=== PATIENT | female | born 1970 | race Caucasian/White ===

== ENCOUNTER 2018-08-17 20:07 | Inpatient (IN) | payer OTHER ==
[2018-08-17] MEDS ORDERED: IPRATROPIUM/ALBUTEROL 3 ML DEYVIAL ONE (20:27)
[2018-08-17] MEDS ORDERED: IPRATROPIUM/ALBUTEROL 3 ML DEYVIAL IH ONE (20:28)
[2018-08-17] MEDS ORDERED: NS 1,000 ML IV ONE ×2 (20:37→21:52)
[2018-08-17] MEDS ORDERED: ALBUTEROL 3 ML DEYVIAL IH ONE (20:40)
[2018-08-17] MEDS ORDERED: methylPREDNISolone SOD SUCC 125 MG/2 ML VIAL IVP ONE (20:40)
--- NOTE | 2018-08-17 20:40 | EDPHY ---
H & P Stated Complaint: dx with FluA, tonight dizziness SOB, productive cough, thick secreations,TUTTLE Source: Patient Exam Limitations: No limitations - Personal History Current Tetanus/Diphtheria Vaccine: Yes Current Tetanus Diphtheria and Acellular Pertussis (TDAP): Yes - Medical/Surgical History Hx Asthma: No Hx Chronic Respiratory Disease: No Hx Diabetes: No Hx Cardiac Disease: No Hx Renal Disease: No Hx Cirrhosis: No Hx Alcoholism: No Hx HIV/AIDS: No Hx Splenectomy or Spleen Trauma: No Other PMH: thyroid CA, thyroidectomy, HTN, borderline cholesterol, - Social History Smoking Status: Never smoked Time Seen by Provider: 08/17/18 20:36 HPI/ROS: HPI: This is a 48-year-old female who presents with Chief Complaint: dx with FluA, tonight dizziness SOB, productive cough, thick secreations,TUTTLE Location: Chest Quality: Cough, dyspnea Duration: Several days Signs and Symptoms: + fever, no nausea, no vomiting, no diarrhea, no urinary symptoms, no chest pain, + shortness of breath, no wheezing, + cough, no sore throat, no neck stiffness, no joint pain, no swollen glands, no ear pain, no rash Timing: Acute, worsening Severity: Moderate to severe Context: Patient was diagnosed on with influenza A and started on Tamiflu. Wednesday she noted increased cough, fatigue and continued fevers. Patient was started on azithromycin on Wednesday and she is on day 3 of . Patient presents today with worsening shortness of breath, inability to take a deep breath, productive cough, thick secretions and headache. Headache is not the worst of her life and denies thunderclap symptoms. Modifying Factors: See above Comment: ROS: A comprehensive 10 system review of systems is otherwise negative aside from elements mentioned in the history of present illness. MEDICAL/SURGICAL/SOCIAL HISTORY: Medical history: thyroid CA, HTN, borderline cholesterol. Surgical history: thyroidectomy Social history: Never smoked. Family history noncontributory. CONSTITUTIONAL: Ill but nontoxic-appearing overweight middle-aged white female , awake and alert, no obvious distress HEENT: Atraumatic and normocephalic, PERRL, EOMI. Nares patent; no rhinorrhea; no nasal mucosal edema. Tympanic membranes clear. Oropharynx clear, no exudate and moist pink mucosa. Airway patent. No lymphadenopathy. No meningismus. Cardiovascular: Normal S1/S2, tachycardia, regular rhythm, without murmur rub or gallop. PULMONARY/CHEST: Shallow breathing pattern. Symmetrical and nontender. Diminished bases bilaterally. poor air movement. No accessory muscle usage. ABDOMEN: Soft, nondistended, nontender, no rebound, no guarding, no peritoneal signs, no masses or organomegaly. No CVAT. EXTREMITIES: 2/2 pulses, strength 5/5, no deformities, no clubbing, no cyanosis or edema. NEUROLOGICAL: no focal neuro deficits. GCS 15. SKIN: Warm and dry, no erythema. no rash. Good capillary refill. (Domonique Patten) Constitutional: Initial Vital Signs Temperature (C) 37.0 C 08/17/18 20:15 Heart Rate 105 H 08/17/18 20:15 Respiratory Rate 20 08/17/18 20:15 Blood Pressure 152/106 H 08/17/18 20:15 O2 Sat (%) 95 08/17/18 20:15 O2 Delivery Mode Room Air Allergies/Adverse Reactions: No Known Allergies Allergy (Unverified 08/17/18 20:12) Home Medications: Medication Instructions Recorded DULoxetine 08/17/18 Levothyroxine [Synthroid 75 mcg 08/17/18 (*)] Mestinon 60mg (*) 08/17/18 Metoprolol Succinate 08/17/18 Omeprazole 08/17/18 Medical Decision Making - Diagnostics Imaging Results: Imaging Impressions Chest X-Ray 08/17/18 20:39 Impression: Findings compatible with viral / reactive airways disease which can be seen with bronchitis or asthma. No consolidative opacities are seen to suggest pneumonia. ED Course/Re-evaluation: I did not see this patient while she was in the emergency department. However her care was discussed with the PA while the patient was in the department. I agree with treatment plan and management (Otf Diallo) Vital signs reviewed and show elevated blood pressure and tachycardia. Placed on monitor worker. IV access, laboratory studies, blood culture, chest x-ray ordered Patient given 2 L normal saline, DuoNeb, albuterol nebulizer, IV Solu-Medrol 125 mg 2109: Labs reviewed. WBC 10 K. No signs of anemia/platelet dysfunction/GINO/ elevated LFTs/electrolyte imbalance. 2121: Notified by RN that patient is now 88-90% on room air. Chest x-ray my read shows no thiago opacity, effusion. Patient is on day 3 of azithromycin. Will continue IV azithromycin and added IV Rocephin. 2215: ED consult for admission for influenza a, hypoxia. Spoke with hospitalist, Dr. Wade, kindly agrees to admit patient and provide further care. This patient was seen under the supervision of my secondary supervising physician. I evaluated care for this patient with attending. Discussed this patient with Dr. Diallo who did not see the patient. (Domonique Patten) Differential Diagnosis: Shortness of breath including but not limited to pulmonary infectious process, COPD, asthma, pulmonary embolus and congestive heart failure. (Domonique Patten) - Data Points Laboratory Results: Laboratory Results 08/17/18 20:10 08/17/18 20:10 08/17/18 08/17/18 08/17/18 21:30 20:10 20:10 WBC 10.72 10^3/uL H 10^3/uL (3.80-9.50) RBC 5.18 10^6/uL 10^6/uL (4.18-5.33) Hgb 15.7 g/dL g/dL (12.6-16.3) Hct 47.8 % H % (38.0-47.0) MCV 92.3 fL fL (81.5-99.8) MCH 30.3 pg pg (27.9-34.1) MCHC 32.8 g/dL g/dL (32.4-36.7) RDW 13.0 % % (11.5-15.2) Plt Count 442 10^3/uL H 10^3/uL (150-400) MPV 10.1 fL fL (8.7-11.7) Neut % (Auto) Not Reported Lymph % (Auto) Not Reported [place] % (Auto) Not Reported Eos % (Auto) Not Reported Baso % (Auto) Not Reported Nucleat RBC Rel Count Not Reported Absolute Neuts (auto) Not Reported Absolute Lymphs (auto) Not Reported Absolute Monos (auto) Not Reported Absolute Eos (auto) Not Reported Absolute Basos (auto) Not Reported Absolute Nucleated RBC Not Reported Immature Gran % Not Reported Seg Neutrophils % 35.0 % % Band Neutrophils % 9.0 % % Lymphocytes % 43.0 % % Monocytes % 6.0 % % Eosinophils % 5.0 % % Basophils % 0.0 % % Metamyelocytes % 0.0 % % Myelocytes % 0.0 % % Promyelocytes % 0.0 % % Blast Cells % 0.0 % % Immature Gran # Not Reported Absolute Seg Neuts 3.75 10^3/uL 10^3/uL (1.70-6.50) Absolute Band Neuts 0.96 10^3/uL H 10^3/uL (0.00-0.70) Absolute Lymphocytes 4.61 10^3/uL H 10^3/uL (1.00-3.00) Absolute Monocytes 0.64 10^3/uL 10^3/uL (0.30-0.80) Absolute Eosinophils 0.54 10^3/uL H 10^3/uL (0.03-0.40) Absolute Basophils 0.00 10^3/uL L 10^3/uL (0.02-0.10) Absolute Metamyelocyte 0.00 10^3/mL 10^3/mL (0.00-0.00) Absolute Myelocytes 0.00 10^3/mL 10^3/mL (0.00-0.00) Absolute Promyelocytes 0.00 10^3/uL 10^3/uL (0.00-0.00) Absolute Plasma Cells 0.00 10^3/uL 10^3/uL (0.00-0.00) Nucleated RBCs 0 /100 WBC /100 WBC (0-0) RBC/WBC/PLT Morphology NORMAL (NORMAL) Absolute Blast Cells 0.00 10^3/uL 10^3/uL (0.00-0.00) Plasma Cells % 0.0 % % Platelet Estimate INCREASED H (ADEQ) VBG Lactic Acid 1.9 mmol/L mmol/L (0.7-2.1) Sodium Potassium Chloride Carbon Dioxide Anion Gap BUN Creatinine Estimated GFR Glucose Calcium Total Bilirubin Conjugated Bilirubin Unconjugated Bilirubin AST ALT Alkaline Phosphatase Total Protein Albumin Beta HCG, Qual NEGATIVE 08/17/18 20:10 WBC RBC Hgb Hct MCV MCH MCHC RDW Plt Count MPV Neut % (Auto) Lymph % (Auto) [place] % (Auto) Eos % (Auto) Baso % (Auto) Nucleat RBC Rel Count Absolute Neuts (auto) Absolute Lymphs (auto) Absolute Monos (auto) Absolute Eos (auto) Absolute Basos (auto) Absolute Nucleated RBC Immature Gran % Seg Neutrophils % Band Neutrophils % Lymphocytes % Monocytes % Eosinophils % Basophils % Metamyelocytes % Myelocytes % Promyelocytes % Blast Cells % Immature Gran # Absolute Seg Neuts Absolute Band Neuts Absolute Lymphocytes Absolute Monocytes Absolute Eosinophils Absolute Basophils Absolute Metamyelocyte Absolute Myelocytes Absolute Promyelocytes Absolute Plasma Cells Nucleated RBCs RBC/WBC/PLT Morphology Absolute Blast Cells Plasma Cells % Platelet Estimate VBG Lactic Acid Sodium 137 mEq/L mEq/L (135-145) Potassium 4.5 mEq/L mEq/L (3.5-5.2) Chloride 101 mEq/L mEq/L (97-110) Carbon Dioxide 27 mEq/l mEq/l (22-31) Anion Gap 9 mEq/L mEq/L (6-14) BUN 16 mg/dL mg/dL (7-23) Creatinine 0.9 mg/dL mg/dL (0.6-1.0) Estimated GFR > 60 Glucose 99 mg/dL mg/dL (70-100) Calcium 10.2 mg/dL mg/dL (8.5-10.4) Total Bilirubin 0.3 mg/dL mg/dL (0.1-1.4) Conjugated Bilirubin 0.3 mg/dL mg/dL (0.0-0.5) Unconjugated Bilirubin 0.0 mg/dL mg/dL (0.0-1.1) AST 27 IU/L IU/L (14-46) ALT 41 IU/L IU/L (9-52) Alkaline Phosphatase 97 IU/L IU/L (38-126) Total Protein 8.3 g/dL H g/dL (6.3-8.2) Albumin 4.4 g/dL g/dL (3.5-5.0) Beta HCG, Qual Medications Given: Discontinued Medications Albuterol (Proventil Neb) 3 ml IH EDNOW ONE Stop: 08/17/18 20:41 Last Admin: 08/17/18 20:44 Dose: 3 ml Albuterol/Ipratropium (Duoneb) 3 ml IH EDNOW ONE Stop: 08/17/18 20:29 Last Admin: 08/17/18 20:29 Dose: 3 ml Sodium Chloride (Ns) 1,000 mls @ 0 mls/hr IV ONCE ONE; Wide Open PRN Reason: Protocol Stop: 08/17/18 20:38 Last Admin: 08/17/18 20:45 Dose: 1,000 mls Methylprednisolone Sodium Succinate (Solu-Medrol) 125 mg IVP EDNOW ONE Stop: 08/17/18 20:41 Last Admin: 08/17/18 20:44 Dose: 125 mg Departure - Departure Disposition: [facility] Acute Clinical Impression: Influenza A, Hypoxia Condition: Fair
[2018-08-17 20:46] LABS: PLATELET COUNT 442 10^3/uL (150-400)
[2018-08-17] MEDS ORDERED: AZITHROMYCIN IV 500 MG in NS 250 ML IV ONE (22:18)
[2018-08-17] MEDS ORDERED: ONDANSETRON 4 MG/2 ML VIAL IVP PRN (23:14)
[2018-08-17] MEDS ORDERED: ONDANSETRON DISINTEGRATING 4 MG TAB PO PRN (23:14)
[2018-08-17] MEDS ORDERED: NS 1,000 ML IV SCH (23:15)
[2018-08-17] MEDS: ALBUTEROL 3 ML DEYVIAL IH PRN (23:59)
[2018-08-18] MEDS ORDERED: BENZONATATE 100 MG CAP PO PRN (02:33)
[2018-08-18] MEDS ORDERED: HYDROcodone/CPM TUSSIONEX 5 ML UDSYR PO PRN (02:53)
[2018-08-18] MEDS ORDERED: METOPROLOL SUCCINATE XR 50 MG TAB PO SCH ×2 (03:00→21:00)
[2018-08-18] MEDS: guaiFENesin/CODEINE PHOS 10 ML UDCUP PO PRN ×3 (03:27→20:20)
--- NOTE | 2018-08-18 03:55 | GHP ---
[f rep st] HISTORY AND PHYSICAL DATE OF ADMISSION: 08/17/2018 PRIMARY CARE PHYSICIAN: Unlisted. SOURCE: Patient provides history, appears reliable. EMR was reviewed and case discussed with ED pro vider. CHIEF COMPLAINT: Cough and shortness of breath. HISTORY OF PRESENT ILLNESS: This is a very pleasant 48-year-old female with past medical history sig nificant for GERD, HTN, HLD, hypothyroidism status post thyroidectomy for thyroid cancer, REY, who pr esents to the emergency department today with complaints of worsening cough, shortness of breath, and dizziness. Patient reports that she was diagnosed with flu A earlier in the week. She was treated by her PCP with Tamiflu. She subsequently developed worsening symptoms 3 days ago and was prescribed azithromycin by her provider. Today, the patient presents to the ED with complaints of worsening dy spnea, shortness of breath, dizziness, headaches. She has continued to have subjective intermittent fevers and chills. She has continued to have some fatigue. Her myalgias are improved. The patient reports that she and her family returned from vacation in [place] on Wednesday and her daughter gloria gómez developed symptoms on Wednesday and the patient became ill on Wednesday. This was a week and half ag o. Currently, patient is denying any fevers or chills. No nausea, vomiting, or diarrhea. She dennis nues to have some dyspnea, particularly on exertion and cough. REVIEW OF SYSTEMS: Ten systems reviewed, negative except as noted above. ALLERGIES: No known drug allergies. HOME MEDICATION: Med rec not yet completed. Listed is omeprazole, metoprolol succinate, Mestinon, l evothyroxine, and duloxetine. PAST SURGICAL HISTORY: Significant for thyroidectomy for thyroid cancer, tonsillectomy, adenoidectom y in childhood, carpal tunnel release, , cholecystectomy, lap band in 2006 and removal in tob2017. FAMILY HISTORY: Negative for lung disease or cancer. SOCIAL HISTORY: Patient is . She lives with her family. She drinks rare alcohol. No tobacc o or drugs. CODE STATUS: Full. PHYSICAL EXAMINATION: VITAL SIGNS: Upon arrival to the emergency department, blood pressure is 152/ 100, heart rate 105, respiratory rate 20, O2 sat 95% on room air, which did decrease down to 90%, wit h a temperature of 37.0. Currently available vital signs: Blood pressure is 142/94, heart rate 106, respiratory rate 19, O2 sat is 91% on room air, temperature 36.9. GENERAL: No acute distress. Nirali y pleasant, obese female who is lying quietly in her bed, awake. HEAD: Normocephalic, atraumatic. EYES: Extraocular muscles grossly intact. Pupils equal, round, slightly decreased reactivity to lig ht bilaterally, but symmetric. No scleral icterus or conjunctival injection. ENT: Mucous membranes appear moist. No oropharyngeal erythema or exudates. Dentition intact. No nasal discharge. NECK: Supple. Trachea midline. CV: Tachycardic in the 100s. No apparent murmurs, rubs, or gallops. R ESPIRATORY: Unlabored breathing. Lung sounds are diminished bibasilarly with crackles bibasilarly. No wheezes or rhonchi. Unlabored breathing otherwise. ABDOMEN: Obese, soft, nontender to palpatio n. No rebound, guarding, or masses appreciated. : No suprapubic tenderness to palpation. No Fol ey catheter in place. EXTREMITIES: No cyanosis, clubbing, edema. Patient with 2+ pedal pulses bila terally, symmetric. NEURO: Grossly nonfocal. Moves all extremities. PSYCH: Patient is pleasant, cooperative. Thought process, content, and questions are all appropriate. LABORATORY STUDIES: WBC 10.72, H and H 15.7 and 47.8, MCV 92.3, platelet count is 442, no bands. VB G lactic acid 1.9. Sodium 137, potassium 4.5, chloride 101, CO2 27, anion gap 9, BUN 16, creatinine 0.9, GFR greater than 60, glucose 99, calcium 10.2, total bili 0.3, conjugated 0.3, ALT 41, AST 27, a lk phos 97, total protein 8.3, albumin is 4.4, procalcitonin 0.08, and beta hCG is negative. Chest x-ray image and report were reviewed by myself showing peribronchiolar thickening consistent wi th a viral or reactive airway disease, significant for bronchitis, lumbar spondylosis with focal kyph osis at the thoracolumbar junction, mild anterior wedge deformity T12, which is age indeterminate, mu ltiple surgical clips overlie base of the neck. ASSESSMENT AND PLAN: This is a pleasant 48-year-old female with history of hypertension, hypothyroid ism following thyroidectomy for thyroid cancer, gastroesophageal reflux disease, hyperlipidemia, obst ructive sleep apnea, presents to the emergency department with complaints of worsening shortness of b reath, cough, 1 week from diagnosis of influenza A. 1. Shortness of breath. The patient does have post influenza bronchitis. There is no evidence of p neumonia. She has been on azithromycin and completed a course of Tamiflu. The patient did receive a dditional dose of azithromycin and Rocephin in the emergency department. We will not continue any ad ditional antibiotics. Her procalcitonin is less than 1. Supportive care with antitussive medication s, IV fluid hydration, and nebulizer treatment p.r.n., which patient reports did help her symptoms. She does remain tachycardic in the low 100s while at rest. She does report she takes metoprolol at h .s. which we will continue, but this is likely secondary to her dyspnea related to her bronchitis. Marci malcolm will continue to monitor on telemetry and she does have some intermittent episodes of mild hypoxia in the 90s. We will need to complete an exertional pulse ox before discharge to ensure patient does not require any supplemental oxygen as she recovers. 2. Chronic medical issue. Plan to resume patient's home medication for gastroesophageal reflux dise ase, hypertension, hypothyroidism, hyperlipidemia, and patient with history of obstructive sleep apne a. 3. Fluid, electrolyte, nutrition. Continue IV fluids for supplementation overnight. Encourage oral hydration. Electrolytes are adequate at this time. Continue to monitor. Replace if needed. Diet as tolerated. 4. Core status is full. 5. Prophylaxis, sequential compression devices, Lovenox if patient should stay additional day. DISPOSITION: The patient admitted to full inpatient status anticipating a 2 midnight stay in the set ting of persistent tachycardia and some intermittent episodes of hypoxia on the Med/Surg floor. /[id number]/MODL
[2018-08-18 05:48] LABS: PLATELET COUNT 410 10^3/uL (150-400)
[2018-08-18] MEDS: ALBUTEROL 3 ML DEYVIAL IH PRN (07:41)
[2018-08-18] MEDS: ENOXAPARIN 40 MG/0.4 ML SYR SC SCH (09:15)
--- NOTE | 2018-08-18 11:08 | ASMTCMCOM ---
CM Note CM Note Notes: Pt is a 48 yo F presents with influenza and hypoxia. Pt was treated by her PCP with tamiflu and antibiotics prior to admission but still felt the need to come to ED due to worseling cough, shortening of breath and dizziness. Pt lives independently with . No CM needs identified at this time. Pt likely to be discharged independently. CM available if needs arise. Plan: Independent once medically stable. Date Signed: 08/18/2018 11:08 AM Electronically Signed By:YONATAN Alarcon
--- NOTE | 2018-08-18 12:09 | PDMN ---
Medical Necessity Medical necessity: Pt meets IP criteria as of 08/17/2018 per and [facility] MG-PUL ( Pulmonary Disease GRG); est los > 2 mn for ongoing tx and management of post flu bronchitis with 1 week of dyspnea, hypoxia (RA 88%), cough, leukocytosis, and hypoventilation; requiring further monitoring, nebulizers, and IVF. Comorbid obesity, GERD, HTN, HLD, s/p thyroidectomy for thyroid CA, and REY.
[2018-08-18] MEDS: ACETAMINOPHEN 325 MG TAB PO PRN ×2 (14:18→20:20)
[2018-08-18] MEDS: PYRIDOSTIGMINE BROMIDE 60 MG TAB PO SCH (17:00)
[2018-08-18] MEDS: LEVOTHYROXINE 150 MCG TAB PO SCH (17:01)
[2018-08-18] MEDS: IBUPROFEN 200 MG TAB PO PRN (17:01)
--- NOTE | 2018-08-18 17:04 | HOSPPROG ---
Hospitalist Progress Note Assessment/Plan: #Post-influenza bronchitis/RAD: very symptomatic with exertion, tight on lung exam -cont Albuterol, steroids, antitussives #Leukocytosis: stress-reaction, no PNA on CXR, negative procalcitonin #GERD: #Hypothyroidism: LT4 Direct time spent: 30min bedside evaluating pt, reviewing imaging, labs (16:30- 17:00) Subjective: very SOB with exertion "could not breath" Objective: Vital Signs Temp Pulse Resp BP Pulse Ox 36.9 C 99 17 141/93 H 98 08/18/18 15:11 08/18/18 15:11 08/18/18 15:11 08/18/18 15:11 08/18/18 15:11 Laboratory Results 08/18/18 04:58 08/18/18 04:58 08/17/18 08/18/18 08/19/18 05:59 05:59 05:59 Intake Total 400 415 Output Total 1200 850 Balance -800 -435 - Time Spent With Patient Time Spent with Patient: greater than 25 minutes Time Spent with Patient: Greater than 25 minutes spent on this patients care, greater than 50% of time spent counseling, educating, and coordinating care regarding the above mentioned plan. - Physical Exam Constitutional: uncomfortable Eyes: PERRL Ears, Nose, Mouth, Throat: moist mucous membranes Cardiovascular: regular rate and rhythym Respiratory: other (poor air movement) Gastrointestinal: normoactive bowel sounds Skin: warm Musculoskeletal: full muscle strength Neurologic: AAOx3, CN II-XII Intact Psychiatric: interacting appropriately ICD10 Worksheet Patient Problems: Problems Problem Status Onset Hypoxia Acute Influenza A Acute
[2018-08-18] MEDS: [UNRECOGNIZED DRUG - REMARK] EACHEYE SCH (17:17)
[2018-08-18] MEDS: ALBUTEROL 60 PUFFS/8 GM MDI IH PRN (20:05)
[2018-08-18] MEDS ORDERED: ATORVASTATIN CALCIUM 20 MG TAB PO SCH (21:00)
[2018-08-19] MEDS: [UNRECOGNIZED DRUG - REMARK] EACHEYE SCH ×2 (00:25→06:27)
[2018-08-19] MEDS: PYRIDOSTIGMINE BROMIDE 60 MG TAB PO SCH ×2 (00:33→11:06)
[2018-08-19] MEDS: IBUPROFEN 200 MG TAB PO PRN (00:33)
[2018-08-19] MEDS: guaiFENesin/CODEINE PHOS 10 ML UDCUP PO PRN (04:03)
[2018-08-19] MEDS: ACETAMINOPHEN 325 MG TAB PO PRN (04:08)
[2018-08-19] MEDS: ALBUTEROL 60 PUFFS/8 GM MDI IH PRN (04:33)
[2018-08-19] MEDS: LEVOTHYROXINE 150 MCG TAB PO SCH (06:02)
[2018-08-19] MEDS ORDERED: DULoxetine 60 MG CAP PO SCH (09:00)
[2018-08-19] MEDS ORDERED: PANTOPRAZOLE SODIUM 40 MG TAB PO SCH (09:00)
[2018-08-19] MEDS ORDERED: predniSONE 20 MG TAB PO SCH (09:00)
[2018-08-19] MEDS ORDERED: CHOLECALCIFEROL VIT D3 1,000 UNITS TAB PO SCH (09:00)
[2018-08-19] MEDS: ENOXAPARIN 40 MG/0.4 ML SYR SC SCH (09:34)
[2018-08-19] MEDS ORDERED: GENTAMICIN 0.3% OPHT DROPS 5ML EACHEYE SCH (10:00)
[2018-08-19 11:34] VITALS: BP 141/89
--- NOTE | 2018-08-19 14:35 | ASDISCHSUM ---
Discharge Information Plan Status:Home with No Needs Medically Cleared to Leave:08/18/2018 Discharge Date:08/18/2018 CM D/C Disposition:Home, Routine, Self-Care ADT D/C Disposition: Projected Discharge Date:08/18/2018 Transportation at D/C:Family Discharge Delay Reason: Follow-Up Date:08/18/2018 Discharge Slot: Final Diagnosis:Flu, bronchitis Placement Information Patient Contact Information Contact Name:RODGER Relationship: Address:[address] [facility] City:[facility] Phone: State/Zip Code:[place] [address] Email: Financial Information Financial Class:HMO and PPO Plans Primary Plan Desc:[employer] [place]MON[place] Primary Plan Number:[id number] Secondary Plan Desc: Secondary Plan Number: Assessment Information LACE LACE Length of stay for Answers: 2 days current admission Acuity / Level of Answers: Yes Care: Did the patient have an inpatient admission? Comorbidities - select Answers: Any tumor (including all that apply lymphoma or leukemia) Other Notes: HTN; HLD; Hypothyroid # of Emergency department Answers: 1-2 visits in the last 6 months Score: 9 Date Signed: 08/19/2018 02:35 PM Electronically Signed By:Chikis Das [facility] CM Progress Note CM Note CM Note Notes: Pt is a 48 yo F presents with influenza and hypoxia. Pt was treated by her PCP with tamiflu and antibiotics prior to admission but still felt the need to come to ED due to worseling cough, shortening of breath and dizziness. Pt lives independently with . No CM needs identified at this time. Pt likely to be discharged independently. CM available if needs arise. Plan: Independent once medically stable. Date Signed: 08/18/2018 11:08 AM Electronically Signed By:YONATAN Alarcon Case Management Discharge Plan Note Case Management Discharge Discharge Order Complete? Answers: Yes Patient to Obtain Answers: via Family Medications Transportation Arranged Answers: Family/Friends Transport will Pick (Date 08/19/2018 12:00 AM & Time) Family Notified Answers: Yes Notes: in the room Discharge Comments Notes: Spoke with pt's RN. Pt discharged independently with support from . No CM needs identified at this time. Date Signed: 08/19/2018 02:34 PM Electronically Signed By:Chikis Das Intervention Information
--- NOTE | 2018-08-19 15:35 | GDS ---
[f rep st] DISCHARGE SUMMARY DISCHARGE DIAGNOSES: 1. Post influenza bronchitis/reactive airway disease. 2. Leukocytosis. 3. Gastroesophageal reflux disease. 4. Hypothyroidism. 5. History of thyroid cancer. HISTORY OF PRESENT ILLNESS: 48-year-old female with history of GERD, hypertension, hyperlipidemia, h ypothyroidism status post thyroidectomy for thyroid cancer, REY, presents with progressive cough, anneliese rtness of breath and dizziness. She was diagnosed with flu, influenza A earlier this week and comple zhang a course of Tamiflu. However, had increased dyspnea, dizziness, and headaches. She had subjecti ve fevers and chills and increased fatigue. HOSPITAL COURSE BY PROBLEM: 1. Post influenza bronchitis/reactive airway disease. Symptoms improved with albuterol inhaler, joseph roids, and antitussives. 2. Leukocytosis stress versus stress reaction. No pneumonia on x-ray. Negative procalcitonin. 3. GERD. Home medications. 4. Hypothyroidism. 5. History of thyroid cancer, status post thyroidectomy. DISPOSITION: Patient is stable for discharge home with family. NEW MEDICATIONS: 1. Robitussin A-C. 2. Albuterol inhaler. 3. Prednisone. PHYSICAL EXAMINATION: VITAL SIGNS: Today, temperature is 36.8, blood pressure 141/89, heart rate in the 70s, respirations 14, 95% on room air. GENERAL: She is obese, appears much brighter. No acute distress HEENT: PERRLA. Moist mucous membranes. CV: Regular rate and rhythm. LUNGS: Much impro marina air movement. No wheezes or crackles. ABDOMEN: Obese, soft, nontender, nondistended. Positive bowel sounds. : No K[place]. MUSCULOSKELETAL: Moving all 4 extremities. PSYCH: Alert and orient ed x3. Time spent on discharge greater than 30 minutes coordinating discharge medications and counseling pat iekarin at bedside. /[id number]/MODL
[2018-08-19] MEDS ORDERED: METOPROLOL SUCCINATE XR 50 MG TAB PO SCH (21:00)
== END 2018-08-19 14:20 | disposition home or self-care (01) | DRG 203 ==
LOC: EDUNIT# → F3N 08-18 00:30
PROVIDERS: ADMIT Family Medicine; ATTEND Internal Medicine
DX: J20.4 Acute bronchitis due to parainfluenza virus (principal); J45.909 Unspecified asthma, uncomplicated; I10 Essential (primary) hypertension; E03.9 Hypothyroidism, unspecified; K21.9 Gastro-esophageal reflux disease without esophagitis; E78.5 Hyperlipidemia, unspecified; G47.33 Obstructive sleep apnea (adult) (pediatric); Z85.850 Personal history of malignant neoplasm of thyroid
CPT/HCPCS: 96365; J0456; J0696; J1650; J2930; J7512; J7613